=== PATIENT | male | born 1995 | race African-American/Black ===

== ENCOUNTER 2020-09-11 07:13 | Emergency (ER) | payer BC, SELFPAY ==
--- NOTE | ~2020-09-11 | CT_ITS ---
EXAMINATION: CT abdomen pelvis wo con DATE: 09/11/2020 07:53 INDICATION: Renal stone presenting with left-sided abdominal pain. TECHNIQUE: Computed tomography (CT) of the abdomen and pelvis was performed without intravenous contr ast. Automated exposure control and iterative reconstruction technique were employed. The dose-length product was 1177.53 mGy-cm. COMPARISON: None FINDINGS: Lung bases are clear. Heart size is normal. No pericardial or pleural effusion ., Liver, gallbladder, spleen, pancreas and bilateral adrenal glands are normal. 2-3 mm stone at the left ureterovesicular junction. No other evident urolithiasis on either the left or right with normal appearing kidneys wit h no hydronephrosis. Normal appendix. No abnormal bowel wall thickening or obstruction. Decompressed bladder is unremarkable. No free intraperitoneal gas or fluid. Multiple Schmorl's nodes throughout th e visualized lower thoracic and upper lumbar spine. IMPRESSION: 1. 2-3 mm stone at the left ureterovesicular junction with no hydronephrosis. Reviewed, dictated and finalized at location A.
[2020-09-11 07:21] VITALS: BP 81/69; PULSE 81; RESP 22; TEMP 36.1; O2SAT 100
[2020-09-11] MEDS: ONDANSETRON INJ 4 MG/2 ML VIAL IV PUSH (07:38)
[2020-09-11] MEDS: SODIUM CHLORIDE 0.9% IV 1,000 ML 999 ML IV CONT (07:38)
[2020-09-11] MEDS: HYDROmorphone HCL INJ (*CRX) 1 MG/ML SYR 0.5 MG IV PUSH (07:38)
[2020-09-11 07:43] LABS: Basophils Percent Auto 0.7 % (0.2-1.2); Eosinophils Absolute Auto 0.1 K/mm3 (0-0.3); Hematocrit 43.9 % (42.0-52.0); Hemoglobin 13.3 g/dL (14.0-18.0); Immature Granulocyte Absolute 0.01 K/mm3 (0.00-0.031); Immature Granulocyte Percent A 0.2 % (0-0.5); Lymphocytes Absolute Auto 2.72 K/mm3 (0.9-3.2); Lymphocytes Percent Auto 46.4 % (18.3-44.2); Mean Corpuscular HGB Conc 30.3 g/dl (32-36); Mean Corpuscular Hemoglobin 26.1 pg (26-34); Mean Corpuscular Volume 86.1 fl (80-100); Mean Platelet Volume 10.8 fl (7.4-10.4); Monocytes Absolute Auto 0.5 K/mm3 (0.1-0.6); Neutrophils Absolute Auto 2.4 K/mm3 (1.3-6.7); Neutrophils Percent Auto 41.7 % (45.5-73.1); Platelet Count Result 324 k/mm3 (150-375); Red Cell Distribution Width 13.1 % (11.5-14.5); White Blood Count 5.9 K/mm3 (4.5-10.0)
[2020-09-11 07:50] LABS: Alanine Aminotransferase 32 U/L (4-50); Albumin Level 4.3 g/dL (3.5-5.1); Alkaline Phosphatase 148 U/L (38-126); Anion Gap 9 mmol/L (8-16); Aspartate Amino Transferase 66 U/L (17-59); Blood Urea Nitrogen 16 mg/dL (9-20); Calcium 9.1 mg/dL (8.4-10.2); Carbon Dioxide 24 mmol/L (22-30); Chloride 111 mmol/L (98-107); Estimated CRCL calculation 132 ml/min; Estimated Glomerular Filt Rate > 60; Glucose 108 mg/dL (75-110); Lipase 52 U/L (23-300); Potassium 3.9 mmol/L (3.4-5.0); Sodium 144 mmol/L (137-145)
--- NOTE | 2020-09-11 07:54 | ED.ABDPAIN ---
HPI - Abdominal Pain General Chief Complaint: Abdominal Pain Stated Complaint: left flank pain Time Seen by Provider: 09/11/20 07:23 Source: patient and RN notes reviewed Mode of arrival: ambulatory Limitations: no limitations History of Present Illness HPI narrative: Patient is 24 years old -[place] male presents with left lower quadrant pain that started yesterday morning, got worse this morning. History of kidney stone. Associated with nausea and frequent vomiting. Related Data Allergies Allergy/AdvReac Type Severity Reaction Status Date / Time No Known Allergies Allergy Verified 09/11/20 07:25 Review of Systems Review of Systems: Narrative: CONSTITUTIONAL: Denies fever, chills, or sweats. EYES: Denies visual changes, redness, or discharge. ENT: Denies rhinorrhea, congestion, sore throat, or otalgia. CARDIOVASCULAR: Denies chest pain, palpitations, or edema. RESPIRATORY: Denies cough or dyspnea. GASTROINTESTINAL: Denies abdominal pain, nausea, vomiting, or diarrhea. GENITOURINARY: Denies dysuria or hematuria. SKIN: Denies rash or itching. MUSCULOSKELETAL: Denies back pain, joint pain, or myalgia. NEUROLOGIC: Denies headache, numbness, or weakness. PSYCHIATRIC: Denies anxiety or depression. PMFSH Family History Family History Mother Hypertension Family history of diabetes mellitus in first degree relative Social History Social History Smoking status: Never smoker Alcohol intake: never Gender identity (if verbalized by the patient): Male Exam Narrative: Exam Narrative: General appearance: Well-developed, well-nourished, in severe pain, restless Skin: Normal color, diaphoretic Head: Normocephalic, nontraumatic Eyes: Clear conjunctiva ENT: Oropharynx normal, ears normal, nose normal Neck: Supple, nontender Chest and respiratory: Airway patent, no respiratory distress, no accessory muscle use Heart: Regular rate/rhythm Abdomen: Soft, moderate tenderness left flank left lower quadrant Vascular: Normal peripheral pulses, normal capillary refill. Musculoskeletal: Normal range of motion, nontender back Neurologic: Alert and oriented ?3, Course Course Emergency Course: Improving Reevaluation(s) Reevaluation #1: Feeling great, currently asymptomatic. Date: 09/11/20 Time: 09:22 Vital Signs Vital signs: Vital Signs Temperature 36.1 C L 09/11/20 07:21 Pulse Rate 81 09/11/20 07:21 Respiratory Rate 22 H 09/11/20 07:21 Blood Pressure 81/69 L 09/11/20 07:21 Pulse Oximetry 100 09/11/20 07:21 Temperature 36.1 C L 09/11/20 07:21 Pulse Rate 81 09/11/20 07:21 Respiratory Rate 22 H 09/11/20 07:21 Blood Pressure 81/69 L 09/11/20 07:21 Pulse Oximetry 100 09/11/20 07:21 MDM - Abdominal Pain MDM Narrative Medical decision making narrative: Kidney stone is my concern. Labs, CT abdomen pelvis without contrast, IV fluid, IV Toradol, Dilaudid, and Zofran ordered Differential Diagnosis Differential diagnosis: Likely calculus of kidney and constipation Lab Data Result diagrams: 09/11/20 07:33 09/11/20 07:33 Labs: Lab Results 09/11/20 09/11/20 09/11/20 Range/Units 07:33 07:33 08:55 WBC 5.9 (4.5-10.0) K/mm3 RBC 5.10 (4.6-6.20) M/mm3 Hgb 13.3 L (14.0-18.0) g/dL Hct 43.9 (42.0-52.0) % MCV 86.1 (80-100) fl MCH 26.1 (26-34) pg MCHC 30.3 L (32-36) g/dl RDW 13.1 (11.5-14.5) % Plt Count 324 (150-375) k/mm3 MPV 10.8 H (7.4-10.4) fl Immature Gran % (Auto) 0.2 (0-0.5) % Neut % (Auto) 41.7 L (45.5-73.1) % Lymph % (
[2020-09-11] MEDS: KETOROLAC 30 MG/ML VIAL (*BKC) IV PUSH (08:00)
[2020-09-11 09:11] LABS: Add Urine Microscopic? YES; Appearance Urine Clear (Clear); Bilirubin Urine Negative (Negative); Blood Urine 3+ (Negative); Color Urine Yellow (Yellow); Glucose Urine UA Negative (Negative); Ketones Urine Negative (Negative); Leukocyte Esterase Ur Negative LEU/UL (Negative); Mucus Urine Moderate /lpf; Nitrate Urine Negative (Negative); Protein Urine 1+ mg/dL (Negative); RBC Urine >75 /hpf (0-2); Specific Grav Ur 1.028 (1.001-1.035); Squamous Epithelial Cell Urine Rare /hpf (Few); WBC Urine 0-3 /hpf
[2020-09-11 09:28] VITALS: BP 121/78; PULSE 70; RESP 18; O2SAT 100
== END 2020-09-11 09:30 | disposition home or self-care (01) ==
PROVIDERS: Emergency Provider Emergency Medicine
DX: N20.0 Calculus of kidney (principal)
CPT/HCPCS: 36415; 74176; 80053; 81001; 83690; 85025; 96361; 96374; 96375; 99284; J1170; J1885; J2405; J7030